=== PATIENT | female | born 1935 | race Caucasian/White ===

== ENCOUNTER → 2016-07-04 | Outpatient (CLI) | payer OTHER ==
--- NOTE | 2016-07-04 13:30 | MA ---
Screening Digital Mammogram Clinical Indications: Routine screening. Technique: Standard cephalocaudal and mediolateral oblique projections are obtained. This examinatio n is processed by the [facility] computer aided detection system. Comparison: June 20, 2015; May 05, 2014; and studies dating back to March 02, 2008. Breast density: C; The breasts are heterogeneously dense, which may obscure small masses. Findings: CAD was reviewed. Within the upper inner right breast near the chest wall, there is a possi ble developing architectural distortion versus overlapping breast parenchymal tissue. No additional m asses are seen within either breast. There are no significant clusters of microcalcifications. The ax illa are clear. Impression: Possible developing architectural distortion versus overlapping breast parenchymal tissue upper inner right breast near the chest wall. Recommendation: Compression is recommended of the right breast in CC and mediolateral oblique project ions, as well as a 90-degree lateral view for further characterization. If findings are persistent, consider ultrasound, as well. Additional imaging evaluation on the right is needed. BI-RADS 0. Dense mammographic pattern limits the sensitivity of mammography in this patient. If there is a clini sandra palpable abnormality, recommend additional imaging with ultrasound if clinically indicated. [facility] will send a result letter to the patient. Negative mammography should not preclude additional workup of a clinically suspicious finding. The patient's information is entered into a reminder system with a target due date for her next mammo gram.
== END ==
LOC: BMCIMAGING 09:01
DX: Z12.31 Encounter for screening mammogram for malignant neoplasm of breast (principal)
CPT/HCPCS: G0202

== ENCOUNTER → 2016-09-03 | Outpatient (CLI) | payer OTHER | LOC: BMCIMAGING 12:34 | DX: R92.8 Other abnormal and inconclusive findings on diagnostic imaging of breast (principal) | CPT/HCPCS: G0206 ==

== ENCOUNTER → 2017-09-10 | Outpatient (CLI) | payer OTHER | LOC: BMCIMAGING 08:26 | PROVIDERS: ATTEND Internal Medicine | DX: Z12.31 Encounter for screening mammogram for malignant neoplasm of breast (principal) ==